=== PATIENT | male | born 1975 | race Caucasian/White ===

== ENCOUNTER 2017-03-18 22:23 | Emergency (ER) | payer OTHER ==
[~2017-03-18] VITALS: Ht 182.9 cm; Wt 65.0 kg
[~2017-03-18 22:23] MED LIST: LEVAQUIN750 MG PO; NAPROSYN500 MG PO; SUBOXONE 12 MG1 EACH SL
[2017-03-19] MEDS ORDERED: CIPRO500 MG PO (00:58)
[2017-03-19 01:38] VITALS: BP 122/92
== END 2017-03-19 01:42 | disposition home or self-care (01) ==
LOC: EME 22:23
DX: S91.339A Puncture wound without foreign body, unspecified foot, initial encounter (principal); W45.0XXA Nail entering through skin, initial encounter
CPT/HCPCS: 73660; 99281; 99282

== ENCOUNTER 2018-03-03 05:53 | Emergency (ER) | payer OTHER ==
[~2018-03-03] VITALS: Ht 182.9 cm; Wt 63.4 kg
[~2018-03-03 05:53] MED LIST changes: +CIPRO500 MG PO
[2018-03-03] MEDS ORDERED: KEFLEX500 MG PO (08:25)
[2018-03-03 09:16] VITALS: BP 146/88
== END 2018-03-03 09:22 | disposition home or self-care (01) ==
LOC: EME 05:53
PROC: 0JQG0ZZ Repair Right Lower Arm Subcutaneous Tissue and Fascia, Open Approach (ICD-10-PCS; principal; 2018-03-03)
DX: S61.511A Laceration without foreign body of right wrist, initial encounter (principal); W26.0XXA Contact with knife, initial encounter; Y92.009 Unspecified place in unspecified non-institutional (private) residence as the place of occurrence of the external cause
CPT/HCPCS: 99281; 99284